=== PATIENT | male | born 1940 | race Caucasian/White ===

== ENCOUNTER 2017-04-19 13:18 | Inpatient (IN) | payer OTHER ==
[~2017-04-19] VITALS: Ht 177.8 cm; Wt 98.4 kg
[~2017-04-19 13:18] MED LIST: AMLODIPINE BESYL5 MG PO; CLINDAMYCIN HC300 MG PO; DAILY VITAMIN1 EAC8 PO; KEFLEX500 MG PO; MULTIVITAMIN1 EAC2 PO; NAPROSYN250 MG PO; OMEPRAZOLE40 M1 PO; SIMVASTATIN40 MG PO; SIMVASTATIN5 MG PO; TRAMADOL HCL50 MG PO
[2017-04-19 15:58] LABS: EOSINOPHIL (%) 0.2 % (0-5); HEMATOCRIT 37.3 % (38.0-50.0); IMMATURE GRANULOCYTE (%) 0.6 % (0.0-0.7); IMMATURE GRANULOCYTE COUNT 0.1 K/uL; INSTRUMENT ABS NEUTROPHIL CT 13.2 K/uL; LYMPHOCYTE COUNT 0.4 K/uL (1.0-2.8); MCH 29.5 PG (29.0-34.0); MCHC 33.8 G/DL (30.0-36.0); MCV 87.4 FL (86-99); MEAN PLAT.VOLUME 11.5 uM^3 (9.0-12.4); MONOCYTE (%) 3.1 % (3-12); MONOCYTE COUNT 0.4 K/uL (0-0.8); NEUTROPHIL COUNT 13.2 K/uL (1.8-6.4); PLATELET COUNT 154 K/uL (156-360); RBC DIS.WIDTH-CV 12.7 % (11.8-14.6); RBC DIS.WIDTH-SD 40.4 % (39-53); RED BLOOD COUNT 4.27 M/uL (4.00-5.50); WHITE BLOOD COUNT 14.2 K/uL (4.1-10.2)
[2017-04-19 16:13] LABS: AMYLASE 45 IU/L (1-118); CHLORIDE 104 mEq/L (99-109); POTASSIUM 3.7 mEq/L (3.7-5.4); SODIUM 137 mEq/L (136-147)
[2017-04-19 16:14] LABS: GLUCOSE 198 mg/dL (70-99)
[2017-04-19 16:16] LABS: ANION GAP 8 MEQ/L (2-14)
[2017-04-19 16:18] LABS: GFR ESTIMATE (CALCULATED) > 59 mL/min/; SERUM ETHYL ALCOHOL < 10 mg/dL
[2017-04-19 16:19] LABS: UREA NITROGEN (BUN) 18 mg/dL (9-23)
[2017-04-19 16:21] LABS: LIPASE 17 U/L (1.0-51.0)
[2017-04-19 16:26] LABS: ADD MIUA? NO; BILIRUBIN NEGATIVE; BLOOD NEGATIVE; COLOR YELLOW ((YELLOW)); GLUCOSE (STRIP) 150; KETONES NEGATIVE; LEUKOCYTES NEGATIVE; NITRITE NEGATIVE; PROTEIN (STRIP) 30; SPECIFIC GRAVITY 1.033 (1.000-1.030); UCUL ADDED? NO; UROBILINOGEN 0.2 MG/DL (0.2-1.0)
[2017-04-19 17:09] LABS: AMPHETAMINE NEGATIVE (500 ng/mL); BARBITURATES NEGATIVE (200 ng/mL); BENZODIAZEPINES NEGATIVE (150 ng/mL); COCAINE NEGATIVE (150 ng/mL); INTERNAL CONTROLS VALID? YES; METHADONE NEGATIVE (200 ng/mL); METHAMPHETAMINE NEGATIVE (500 ng/mL); OPIATES (MORPHINE) NEGATIVE (100 ng/mL); OXYCODONE NEGATIVE (100 ng/mL); PHENCYCLIDINE NEGATIVE (25 ng/mL); PROPOXYPHENE NEGATIVE (300 ng/mL); THC CANNABINOIDS NEGATIVE (50 ng/mL); TRICYCLIC ANTIDEPRESSANTS NEGATIVE (300 ng/mL)
[2017-04-19] MEDS ORDERED: K-DUR10 MEQ PO (19:55)
[2017-04-19] MEDS ORDERED: HYDROCHLOROTHIA25 MG PO (19:55)
[2017-04-19 22:24] VITALS: BP 145/67
[2017-04-19] MEDS ORDERED: MOTRIN400 MG PO (22:34)
[2017-04-19 23:39] VITALS: BP 144/65
[2017-04-20 04:39] VITALS: BP 115/58
[2017-04-20 06:47] LABS: HEMATOCRIT 35.5 % (38.0-50.0); MCH 28.8 PG (29.0-34.0); MCHC 33.2 G/DL (30.0-36.0); MCV 86.6 FL (86-99); MEAN PLAT.VOLUME 11.9 uM^3 (9.0-12.4); PLATELET COUNT 153 K/uL (156-360); RBC DIS.WIDTH-CV 12.9 % (11.8-14.6); RBC DIS.WIDTH-SD 40.8 % (39-53); WHITE BLOOD COUNT 9.4 K/uL (4.1-10.2)
[2017-04-20 07:16] LABS: ALKALINE PHOSPHATASE 66 IU/L (3-129); ANION GAP 9 MEQ/L (2-14); CHLORIDE 99 MEQ/L (99-109); GFR ESTIMATE (CALCULATED) > 59 mL/min/; POTASSIUM 3.4 MEQ/L (3.7-5.4); SAMPLE HEMOLYSIS CHECK 0; SAMPLE ICTERIC CHECK 0; SAMPLE LIPEMIA CHECK 0; SODIUM 137 MEQ/L (136-147); TOTAL BILIRUBIN 0.8 MG/DL (0.0-1.0); UREA NITROGEN (BUN) 20 mg/dL (9-23)
[2017-04-20 07:21] LABS: GLUCOSE 108 mg/dL (70-99)
[2017-04-20 08:35] VITALS: BP 126/58
[2017-04-20 11:09] VITALS: BP 104/64
[2017-04-20 15:02] VITALS: BP 106/55
[2017-04-20 19:51] VITALS: BP 109/60
[2017-04-21] VITALS (7 sets, daily range): BP systolic 108–122; BP diastolic 56–66
[2017-04-22 04:20] VITALS: BP 132/63
[2017-04-22 08:00] VITALS: BP 119/65
[2017-04-22 11:54] VITALS: BP 131/64
[2017-04-22] MEDS ORDERED: CHLORZOXAZONE500 MG PO (12:46)
[2017-04-22] MEDS ORDERED: LOVENOX40 MG/0.4 SC (12:46)
[2017-04-22] MEDS ORDERED: OXYCODONE HCL5 MG PO ×2 (12:46→16:39)
[2017-04-22] MEDS ORDERED: DIAZEPAM5 MG PO (12:46)
[2017-04-22] MEDS ORDERED: SENNA LAX8.6 MG PO (12:46)
[2017-04-22] MEDS ORDERED: PRAVACHOL80 MG PO (16:34)
[2017-04-22] MEDS ORDERED: PROTONIX40 MG PO (16:35)
[2017-04-22] MEDS ORDERED: TYLENOL EXTRA500 MG PO (16:36)
[2017-04-22] MEDS ORDERED: OXYCODONE HCL10 MG PO (16:37)
[2017-04-22] MEDS ORDERED: ULTRAM50 MG PO (16:37)
[2017-04-22] MEDS ORDERED: ZOFRAN4 MG PO (16:39)
[2017-04-22] MEDS ORDERED: MILK OF MAGNESI10 ML PO (16:41)
[2017-04-22] MEDS ORDERED: COLACE100 MG PO (16:41)
[2017-04-22] MEDS ORDERED: DULCOLAX5 MG PO (16:42)
== END 2017-04-22 14:45 | DRG 552 ==
LOC: EME 13:18 → EDOF 20:29 → 3EAST 21:49
PROVIDERS: Emergency Medicine; Surgery
DX: S32.011A Stable burst fracture of first lumbar vertebra, initial encounter for closed fracture (principal); S32.10XA Unspecified fracture of sacrum, initial encounter for closed fracture; S20.219A Contusion of unspecified front wall of thorax, initial encounter; S90.02XA Contusion of left ankle, initial encounter; W11.XXXA Fall on and from ladder, initial encounter; M54.2 Cervicalgia; E66.9 Obesity, unspecified; R10.30 Lower abdominal pain, unspecified; E78.5 Hyperlipidemia, unspecified; I10 Essential (primary) hypertension; K21.9 Gastro-esophageal reflux disease without esophagitis; K22.70 Barrett's esophagus without dysplasia; R11.2 Nausea with vomiting, unspecified; R20.0 Anesthesia of skin; R42 Dizziness and giddiness; D64.9 Anemia, unspecified; D72.829 Elevated white blood cell count, unspecified; M19.90 Unspecified osteoarthritis, unspecified site; Z87.891 Personal history of nicotine dependence; Z96.651 Presence of right artificial knee joint; Z68.31 Body mass index [BMI] 31.0-31.9, adult
CPT/HCPCS: 70450; 71260; 72125; 72128; 72129; 72131; 72132; 73610; 74177; 80048; 80053; 81003; 82150; 83690; 85025; 85027; 86900; 86901; 93005; 99281; 99285; G0480; J1650; J2270; J2405

== ENCOUNTER 2017-04-22 11:27 | Inpatient (IN) | payer OTHER ==
[~2017-04-22] VITALS: Ht 177.8 cm; Wt 96.4 kg
[~2017-04-22 11:27] MED LIST changes: +HYDROCHLOROTHIA25 MG PO; +K-DUR10 MEQ PO; +MOTRIN400 MG PO
[2017-04-22] MEDS ORDERED: SENNA LAX8.6 MG PO (12:46)
[2017-04-22] MEDS ORDERED: CHLORZOXAZONE500 MG PO (12:46)
[2017-04-22] MEDS ORDERED: DIAZEPAM5 MG PO (12:46)
[2017-04-22] MEDS ORDERED: OXYCODONE HCL5 MG PO ×2 (12:46→16:39)
[2017-04-22] MEDS ORDERED: LOVENOX40 MG/0.4 SC (12:46)
[2017-04-22 14:57] VITALS: BP 138/67
[2017-04-22] MEDS ORDERED: PRAVACHOL80 MG PO (16:34)
[2017-04-22] MEDS ORDERED: PROTONIX40 MG PO (16:35)
[2017-04-22] MEDS ORDERED: TYLENOL EXTRA500 MG PO (16:36)
[2017-04-22] MEDS ORDERED: OXYCODONE HCL10 MG PO (16:37)
[2017-04-22] MEDS ORDERED: ULTRAM50 MG PO (16:37)
[2017-04-22] MEDS ORDERED: ZOFRAN4 MG PO (16:39)
[2017-04-22] MEDS ORDERED: COLACE100 MG PO (16:41)
[2017-04-22] MEDS ORDERED: MILK OF MAGNESI10 ML PO (16:41)
[2017-04-22] MEDS ORDERED: DULCOLAX5 MG PO (16:42)
[2017-04-22 23:18] VITALS: BP 113/67
[2017-04-23 05:09] VITALS: BP 139/71
[2017-04-23 07:13] LABS: HEMATOCRIT 35.5 % (38.0-50.0); MCHC 33.5 G/DL (30.0-36.0); MCV 86.6 FL (86-99); MEAN PLAT.VOLUME 11.4 uM^3 (9.0-12.4); PLATELET COUNT 138 K/uL (156-360); RBC DIS.WIDTH-CV 12.6 % (11.8-14.6); RBC DIS.WIDTH-SD 39.2 % (39-53); WHITE BLOOD COUNT 6.6 K/uL (4.1-10.2)
[2017-04-23 07:58] LABS: ALKALINE PHOSPHATASE 69 IU/L (3-129); ANION GAP 9 MEQ/L (2-14); CHLORIDE 99 MEQ/L (99-109); GFR ESTIMATE (CALCULATED) > 59 mL/min/; GLUCOSE 101 mg/dL (70-99); POTASSIUM 3.9 MEQ/L (3.7-5.4); SAMPLE HEMOLYSIS CHECK 0; SAMPLE ICTERIC CHECK 0; SAMPLE LIPEMIA CHECK 0; SODIUM 139 MEQ/L (136-147); TOTAL BILIRUBIN 0.8 MG/DL (0.0-1.0); UREA NITROGEN (BUN) 13 mg/dL (9-23)
[2017-04-23 15:36] VITALS: BP 125/58
[2017-04-24 05:08] VITALS: BP 133/66
[2017-04-24 16:22] VITALS: BP 140/95
[2017-04-25 04:55] VITALS: BP 140/63
[2017-04-25 15:09] VITALS: BP 138/65
[2017-04-26 06:06] VITALS: BP 156/72
[2017-04-26 15:08] VITALS: BP 122/58
[2017-04-27 04:50] VITALS: BP 126/64
[2017-04-27 15:33] VITALS: BP 116/59
[2017-04-28 05:43] VITALS: BP 156/84
[2017-04-28 15:06] VITALS: BP 129/62
[2017-04-29 05:45] VITALS: BP 135/67
[2017-04-29 15:28] VITALS: BP 127/60
[2017-04-30 04:44] VITALS: BP 131/64
[2017-05-01 05:56] VITALS: BP 143/65
[2017-05-01] MEDS ORDERED: SENNA LAX8.6 MG PO (09:55)
[2017-05-01] MEDS ORDERED: CELECOXIB100 MG PO (09:55)
[2017-05-01] MEDS ORDERED: TYLENOL REGULA325 MG PO (09:55)
[2017-05-01] MEDS ORDERED: GABAPENTIN100 MG PO (10:05)
== END 2017-05-01 15:45 | disposition home health service (06) | DRG 552 ==
LOC: 3WEST 11:27
PROVIDERS: Physical Medicine & Rehabilitation Pain Medicine
PROC: F07M7ZZ Manual Therapy Techniques Treatment of Musculoskeletal System - Whole Body (ICD-10-PCS; principal; 2017-04-22)
DX: S32.011A Stable burst fracture of first lumbar vertebra, initial encounter for closed fracture (principal); L03.116 Cellulitis of left lower limb; S32.10XA Unspecified fracture of sacrum, initial encounter for closed fracture; D69.6 Thrombocytopenia, unspecified; M51.34 Other intervertebral disc degeneration, thoracic region; S90.02XA Contusion of left ankle, initial encounter; W11.XXXA Fall on and from ladder, initial encounter; W14.XXXA Fall from tree, initial encounter; M47.9 Spondylosis, unspecified; I10 Essential (primary) hypertension; K21.9 Gastro-esophageal reflux disease without esophagitis; M43.12 Spondylolisthesis, cervical region; K59.00 Constipation, unspecified; E78.5 Hyperlipidemia, unspecified; E87.6 Hypokalemia; D64.9 Anemia, unspecified; Z87.891 Personal history of nicotine dependence; Z96.651 Presence of right artificial knee joint; Z68.30 Body mass index [BMI] 30.0-30.9, adult; Z82.49 Family history of ischemic heart disease and other diseases of the circulatory system
CPT/HCPCS: 72195; 73502; 80053; 85027; 94660; 97110 GO; 97530 GP; J1650